=== PATIENT | male | born 1940 ===

== ENCOUNTER 2017-12-07 10:58 | Emergency (ER) | payer BC ==
[2017-12-07 11:30] VITALS: BP 128/95
--- NOTE | 2017-12-07 11:42 | UC ---
Lower Extremity/Ankle HPI - HPI Summary HPI Summary: Pt presents with left calf pain and swelling. He tells me that about 1.5 weeks ago he had some left ankle pain that was aching. This pain has moved up into his mid to proximal left calf and has began to swell over the last 2-3 days. He denies recent travel, injury, or hx of coagulation disorders. No fever, chills, SOB, or chest pain. No unexplained weight loss, night sweats, or fatigue. - History of Current Complaint Chief Complaint: UCLowerExtremity Stated Complaint: LEG PAIN Hx Obtained From: Patient Onset/Duration: Gradual Onset Severity Initially: Moderate Severity Currently: Moderate Pain Intensity: 7 Pain Scale Used: 0-10 Numeric Aggravating Factor(s): Standing, Ambulation Alleviating Factor(s): Rest Able to Bear Weight: Yes - Allergies/Home Medications Allergies/Adverse Reactions: Allergies Allergy/AdvReac Type Severity Reaction Status Date / Time atorvastatin Allergy Mild See Comment Verified 12/07/17 11:30 PMH/Surg Hx/FS Hx/Imm Hx Previously Healthy: Yes GI/ History: Gastroesophageal Reflux - Surgical History Surgical History: Yes Surgery Procedure, Year, and Place: Laminectomy (90% effective) - Family History Known Family History: Positive: Unknown - Social History Occupation: Retired Lives: With Family Alcohol Use: Daily Alcohol Amount: 1 drink/day Substance Use Type: None Smoking Status (MU): Never Smoked Tobacco Have You Smoked in the Last Year: No - Immunization History Most Recent Tetanus Shot: unknown Review of Systems Constitutional: Negative Skin: Negative Respiratory: Negative Cardiovascular: Negative Gastrointestinal: Negative Motor: Negative Neurovascular: Negative Musculoskeletal: Other: - Left calf pain/swelling Neurological: Negative Psychological: Negative All Other Systems Reviewed And Are Negative: Yes Physical Exam Triage Information Reviewed: Yes Appearance: Well-Appearing, No Pain Distress, Well-Nourished Vital Signs: Initial Vital Signs Temp 98.3 F 12/07/17 11:23 Pulse 68 12/07/17 11:23 Resp 20 12/07/17 11:23 BP 128/95 12/07/17 11:23 Pulse Ox 98 12/07/17 11:23 Neck: Positive: Supple, Nontender, No Lymphadenopathy Respiratory: Positive: Lungs clear, Normal breath sounds, No respiratory distress, No accessory muscle use Cardiovascular: Positive: RRR, No Murmur, Pulses Normal - Left popliteal, TP, and DP., Brisk Capillary Refill - Left foot Musculoskeletal: Positive: Strength Intact - Left foot and ankle, ROM Intact - Left foot and ankle, Edema @ - Mild edema to left calf, Other: - Mild TTP about the left calf. Negative Fred's sign. Neurological: Positive: Alert Psychological: Positive: Age Appropriate Behavior Skin: Positive: Other - No Left leg/foot pallor, erythema, or ecchymosis.. Negative: rashes, significant lesion(s) Lower Extremity Course/Dx - Course Course Of Treatment: US: IMPRESSION: ACUTE DEEP VENOUS THROMBOSIS. There is a small amount of thrombus in the proximal femoral vein and in the popliteal,. posterior tibial, and peroneal veins. I contacted his PCP Dr. Martinez and he would like to order CBC, CMP, PSA, and a hypercoag panel prior to initiating his anticoagulation therapy. I started him with Eliquis, but his insurance would not cover this - thus switched him to Xarelto 15mg BID and f/u with Dr. Martinez this week. Go to ED if SOB, increased pain/swelling, change in color or sensation in left leg. Pt voiced understanding and was agreeable to this plan. - Differential Dx/Diagnosis Provider Diagnoses: Left leg acute DVT Discharge - Discharge Plan Condition: Stable Disposition: HOME Prescriptions: Rivaroxaban TAB(*) [Xarelto 15 mg(*)] 15 mg PO BID #42 tab Patient Education Materials: Deep Vein Thrombosis (ED) Referrals: Ez Martinez MD [Primary Care Provider] - Additional Instructions: If you develop a fever, shortness of breath, chest pain, new or worsening symptoms - please call your PCP or go to the ED. 1) Please schedule a follow up with your PCP within 1 week for follow up care.
--- NOTE | 2017-12-07 12:34 | RAD ---
INDICATION: Left calf pain. COMPARISON: None TECHNIQUE: Duplex interrogation of the left lowerextremity was performed. FINDINGS: Deep veins: The common femoral, great saphenous, profunda femoris, proximal, mid, and distal deep femoral, popliteal, posterior tibial, and peroneal veins were interrogated. There is a small amount of thrombus in the proximal femoral vein and in the popliteal, posterior tibial, and peroneal veins. There is otherwise normal compressibility, augmentation, and phasic flow. Superficial veins: There are no findings of superficial thrombophlebitis. Popliteal fossa:There is no evidence of a popliteal cyst. Soft tissues:There are no soft tissue abnormalities. IMPRESSION: ACUTE DEEP VENOUS THROMBOSIS
[2017-12-07 16:03] LABS: Hematocrit 50 % (42-52); Hemoglobin 16.7 g/dl (14.0-18.0); Mean Corpuscular HGB Conc 33 g/dl (31-36); Mean Corpuscular Hemoglobin 29 pg (27-31); Mean Corpuscular Volume 89 fL (80-94); Red Blood Count 5.67 10^6/ul (4.0-5.4); Red Cell Distribution Width 13 % (10.5-15); White Blood Count 8.6 10^3/ul (3.5-10.8)
[2017-12-07 16:15] LABS: EGFR Non-African American 69.8 (>60)
[2017-12-07 16:29] LABS: ABS Basophils 0.1 10^3/ul (0-0.2); ABS Eosinophils 0.3 10^3/ul (0-0.6); ABS Lymphocytes 1.7 10^3/ul (1.0-4.8); ABS Monocytes 0.6 10^3/ul (0-0.8); ABS Neutrophils 5.9 10^3/ul (1.5-7.7); ABS Nucleated RBC 0 10^3/ul; Eosinophil % 3.7 % (0-6); Lymphocyte % 20.1 % (25-47); Mean Platelet Volume 10 um3 (7.4-10.4); Nucleated Red Blood Cells % 0; Platelet Count 165 10^3/ul (150-450)
--- NOTE | 2017-12-08 10:55 | UC ---
- Progress Note Progress Note: PLS CALL PT - ADVISE THAT PSA IS ELEVATED. FOLLOW-UP WITH DR. KEYES PLANNED. - RANDA TUCKER MD
--- NOTE | 2017-12-09 11:06 | UC ---
- Progress Note Progress Note: please call pt and let him know that his lab work up revealed some coagulation abnormalities. please f/u with dr carrasco as directed.
== END 2017-12-07 13:23 | disposition home or self-care (01) ==
LOC: UCEAST 10:58
DX: I82.412 Acute embolism and thrombosis of left femoral vein (principal); I82.432 Acute embolism and thrombosis of left popliteal vein; K21.9 Gastro-esophageal reflux disease without esophagitis; Z88.8 Allergy status to other drugs, medicaments and biological substances
CPT/HCPCS: 36415; 80053; 81241; 84153; 85025; 85220; 85302; 85303; 85306; 85520; 99212; G0463

== ENCOUNTER 2018-04-05 21:28 | Emergency (ER) | payer BC ==
[2018-04-05 21:42] VITALS: BP 149/84
[2018-04-05] MEDS ORDERED: DOXYcycline CAP(*) 100 MG PO ONE (22:00)
--- NOTE | 2018-04-05 22:08 | UC ---
Ta Richard Jacob, scribed for Camilla Yang MD on 04/05/18 at 2200 . Bite Injury/Animal HPI - HPI Summary HPI Summary: Pt is a 78 y/o M presenting w/ a tick bite. Pt found the tick embedded in his posterior left leg near the knee today at 1330. He states that he removed the tick at 1430. Per triage, erythema is present on the tick bite area. He denies pain. Pt reports that he has been in the [place] for three days until this past Wednesday and was out in the bushes today. He is unsure when he received tick and the date of last tetanus shot. No fevers, chills Not immunocompromised Pt's medications reviewed this visit - History of Current Complaint Chief Complaint: UCBiteInjury Stated Complaint: TICK BITE Time Seen by Provider: 04/05/18 21:45 Hx Obtained From: Patient Severity Currently: None Pain Intensity: 0 Pain Scale Used: 0-10 Numeric - 0/10 Type of Bite: Animal - tick Associated Signs And Symptoms: Positive: Erythema - Allergies/Home Medications Allergies/Adverse Reactions: Allergies Allergy/AdvReac Type Severity Reaction Status Date / Time atorvastatin Allergy Mild See Comment Verified 12/07/17 11:30 Home Medications: Home Medications Loratadine [Claritin 10 MG CAP] 04/05/18 [History] PMH/Surg Hx/FS Hx/Imm Hx Previously Healthy: Yes Other Endocrine History: NEGATIVE: diabetes, thyroid disease Other Respiratory History: NEGATIVE: COPD, asthma - Surgical History Surgical History: None Surgery Procedure, Year, and Place: Laminectomy (90% effective) - Family History Known Family History: Positive: Hypertension Negative: Blood Disorder - Social History Occupation: Employed Full-time Lives: With Family Alcohol Use: Daily Alcohol Amount: 1 drink/day Substance Use Type: None Smoking Status (MU): Never Smoked Tobacco Have You Smoked in the Last Year: No - Immunization History Most Recent Tetanus Shot: unknown Review of Systems Constitutional: Other - NEGATIVE: fever Musculoskeletal: Other: - POSITIVE: tick bite on left calf, erythema is present on area of bite All Other Systems Reviewed And Are Negative: Yes Physical Exam - Summary Physical Exam Summary: Vital Signs Reviewed: Yes A+Ox3, no distress Eyes: Conjunctiva Clear ENT: Hearing grossly normal neck: supple Respiratory: Positive: No respiratory distress, No accessory muscle use Cardiovascular: skin color reflect adequate perfusion Musculoskeletal Exam: MITCHELL x 4 without difficulty Neurological: Positive: Alert, ambulatory without difficulty Psychological: Positive: Normal Response To Family Skin: Positive: no rash, no ecchymosis posterior aspect left knee pt with ana size are erythema with small puncture in middle. No retained parts Triage Information Reviewed: Yes Vital Signs: Initial Vital Signs Temp 98.4 F 04/05/18 21:35 Pulse 64 04/05/18 21:35 Resp 16 04/05/18 21:35 BP 149/84 04/05/18 21:35 Pulse Ox 96 04/05/18 21:35 Bite Injury Course/Dx - Course Course Of Treatment: pt with tick - removed from left posterior leg. tick appears intact. local reaction. unsure length of duration attached. Does not appear engorged. May have been embedded since weekend. Will give 1 time prophylaxis Doxy. pt to d/w PCP regarding tetanus - none in system. local wound care. pt's BP elevated - pt has htn - Differential Dx/Diagnosis Provider Diagnoses: tick bite Discharge - Sign-Out/Discharge Documenting (check all that apply): Discharge/Admit/Transfer - Discharge Plan Condition: Stable Disposition: HOME Patient Education Materials: Tick Bite (ED) Referrals: Ez Martinez MD [Primary Care Provider] - Additional Instructions: Keep area clean and dry. You may develop a bit of reddness in the area of your bite - this is normal. It will improve over the next 2-3 days Check yourself daily for ticks after you have been working in the [employer]. You have been given the 1 time dose prophylaxis for your tick. Discuss your tetanus status with your primary doctr Contact your doctor or return with questions or concerns Approach to prophylaxis : According to the Infectious Diseases Society of [place] (IDSA) guidelines that recommend antibiotic prophylaxis only in patients who meet all of the following criteria: 1. Attached tick identified as an adult or nymphal I. scapularis tick (deer tick). 2. Tick is estimated to have been attached for 36 hours (by degree of engorgement or time of exposure). 3. Prophylaxis is begun within 72 hours of tick removal. Local rate of infection of ticks with B. burgdorferi is 20 percent if attached for over 48 hours (these rates of infection have been shown to occur in parts of [place], parts of the mid[place], and parts of [place] and [place]). If you experience a tick and time of attachment is believed to be less than 36 hours, you may remove the tick with head intact and no need for prophylaxis. If over 36 hours, please come into UC. Prophylactic doxycycline is not recommended for ticks attached less than 36 hours. - Billing Disposition and Condition Condition: STABLE Disposition: Home The documentation as recorded by the Ta calhoun Jacob accurately reflects the service I personally performed and the decisions made by me, Camilla Yang MD.
== END 2018-04-05 22:09 | disposition home or self-care (01) ==
LOC: UCEAST 21:28
DX: S80.862A Insect bite (nonvenomous), left lower leg, initial encounter (principal); W57.XXXA Bitten or stung by nonvenomous insect and other nonvenomous arthropods, initial encounter; Z88.8 Allergy status to other drugs, medicaments and biological substances; Y92.9 Unspecified place or not applicable
CPT/HCPCS: 99212; A9270-GY; G0463